=== PATIENT | female | born 1980 | race African-American/Black ===

== ENCOUNTER 2021-11-24 13:25 | Emergency (ER) | payer OTHER ==
[~2021-11-24] VITALS: Ht 160 cm; Wt 68.0 kg
[2021-11-24] MEDS ORDERED: KETOROLAC 30MG/ML VIAL IV STA (13:51)
[2021-11-24] MEDS ORDERED: ONDANSETRON HCL 4MG/2ML INJ IV STA (13:51)
[2021-11-24] MEDS ORDERED: SODIUM CHLORIDE 0.9% 1,000 ML IV ONE (14:00)
[2021-11-24 15:05] LABS: CLARITY URINE CLEAR (CLEAR); COLOR URINE YELLOW (YELLOW); KETONES URINE 1+ (NEGATIVE); LEUKOCYTE ESTERASE URINE TRACE (NEGATIVE); NITRITE URINE NEGATIVE (NEGATIVE); OCCULT BLOOD URINE 1+ (NEGATIVE); PH URINE 6.5 (4.5-8.0); PROTEIN URINE NEGATIVE (NEGATIVE); SPECIFIC GRAVITY URINE 1.022 (1.005-1.030); UROBILINOGEN URINE 0.2 E.U./dL (0.2-1.0)
[2021-11-24 15:42] LABS: BASOPHILS % 0.3 % (0.0-2.0); EOSINOPHILS % 0.1 % (0.0-5.0); HEMATOCRIT. 39.8 % (36.0-48.0); HEMOGLOBIN. 12.3 g/dL (12.0-16.0); LYMPHOCYTES % 8.8 % (20.0-50.0); MEAN CORPUSCULAR HEMOGLOBIN 20.4 pg (28.0-32.0); MEAN CORPUSCULAR VOLUME 65.7 fL (81.0-99.0); MEAN PLATELET VOLUME 8.2 fl (7.4-10.4); MONOCYTES % 2.4 % (2.0-8.0); NEUTROPHILS % 88.4 % (40.0-76.0); PLATELET 532 x1000/uL (130-400); RED BLOOD CELL COUNT 6.06 mill/uL (4.2-5.4)
[2021-11-24 15:47] LABS: CHLORIDE 114 mEq/L (98-107)
[2021-11-24 15:50] LABS: HCG SCREEN NEGATIVE
[2021-11-24] MEDS ORDERED: ONDANSETRON HCL 4MG/2ML INJ IV ONE (16:00)
[2021-11-24] MEDS ORDERED: OMEP40CA20 MT (18:38)
[2021-11-24] MEDS ORDERED: ONDA4TAB5 MT (18:38)
[2021-11-24 18:55] LABS: PLATELET ESTIMATE INCREASED
[2021-11-24 18:59] VITALS: BP 142/75
== END 2021-11-24 19:02 | disposition home or self-care (01) ==
LOC: ER 13:25
DX: R10.13 Epigastric pain (principal); R11.2 Nausea with vomiting, unspecified
CPT/HCPCS: 36415; 74176; 80053; 81003; 83690; 84703; 85025; 93005; 96361; 96374; 96375; 96376; 99291; J1885; J2405; J7030

== ENCOUNTER 2021-12-24 08:49 | Emergency (ER) | payer OTHER ==
[~2021-12-24] VITALS: Ht 162.6 cm; Wt 55.0 kg
[~2021-12-24 08:49] MED LIST: OMEP40CA20 MT; ONDA4TAB5 MT
[2021-12-24] MEDS ORDERED: ONDANSETRON HCL 4MG/2ML INJ IV STA (09:39)
[2021-12-24] MEDS ORDERED: SODIUM CHLORIDE 0.9% 1,000 ML IV ONE (09:45)
[2021-12-24 11:25] LABS: BASOPHILS % 0.4 % (0.0-2.0); EOSINOPHILS % 0.1 % (0.0-5.0); HEMATOCRIT. 42.4 % (36.0-48.0); HEMOGLOBIN. 13.4 g/dL (12.0-16.0); LYMPHOCYTES % 7.7 % (20.0-50.0); MEAN CORPUSCULAR HEMOGLOBIN 20.5 pg (28.0-32.0); MEAN CORPUSCULAR VOLUME 64.8 fL (81.0-99.0); MEAN PLATELET VOLUME 7.8 fl (7.4-10.4); MONOCYTES % 2.6 % (2.0-8.0); NEUTROPHILS % 89.2 % (40.0-76.0); PLATELET 601 x1000/uL (130-400); RED BLOOD CELL COUNT 6.55 mill/uL (4.2-5.4); RED CELL DISTRIBUTION WIDTH 16.2 % (11.6-14.6)
[2021-12-24 11:28] LABS: CHLORIDE 104 mEq/L (98-107)
[2021-12-24 12:13] LABS: PLATELET ESTIMATE INCREASED
[2021-12-24] MEDS ORDERED: MORPHINE SULFATE 4 MG/ML CPJ (NOT FOR IM USE) IV ONE (15:00)
[2021-12-24] MEDS ORDERED: ONDANSETRON HCL 4MG/2ML INJ IV ONE (15:15)
[2021-12-24] MEDS ORDERED: IOHEXOL-300 100 ML BOTTLE ONE (17:40)
[2021-12-24] MEDS ORDERED: ONDA4TAB5 MT (20:13)
[2021-12-24 20:44] LABS: CLARITY URINE CLEAR (CLEAR); COLOR URINE YELLOW (YELLOW); KETONES URINE NEGATIVE (NEGATIVE); LEUKOCYTE ESTERASE URINE NEGATIVE (NEGATIVE); NITRITE URINE NEGATIVE (NEGATIVE); OCCULT BLOOD URINE 3+ (NEGATIVE); PROTEIN URINE TRACE (NEGATIVE); SPECIFIC GRAVITY URINE 1.086 (1.005-1.030)
[2021-12-24 21:10] VITALS: BP 131/88
== END 2021-12-24 22:10 | disposition home or self-care (01) ==
LOC: ER 08:49
DX: R10.9 Unspecified abdominal pain (principal); R11.2 Nausea with vomiting, unspecified
CPT/HCPCS: 36415; 74177; 80053; 81003; 83690; 85025; 96361; 96374; 96375; 96376; 99285; J2270; J2405; J7030; Q9967

== ENCOUNTER 2024-08-21 03:58 | Emergency (ER) | payer SELFPAY ==
[~2024-08-21] VITALS: Ht 165.1 cm; Wt 80.0 kg
[2024-08-21 04:07] VITALS: O2SAT 96
[2024-08-21 05:43] LABS: BASOPHILS % 0.3 % (0.0-2.0); HEMATOCRIT. 39.9 % (36.0-48.0); HEMOGLOBIN. 12.9 g/dL (12.0-16.0); LYMPHOCYTES % 8.6 % (20.0-50.0); MEAN CORPUSCULAR HEMOGLOBIN 20.9 pg (28.0-32.0); MEAN CORPUSCULAR HGB CONC 32.5 g/dL (31.0-37.0); MEAN CORPUSCULAR VOLUME 64.3 fL (81.0-99.0); MEAN PLATELET VOLUME 8.4 fl (7.4-10.4); MONOCYTES % 4.3 % (2.0-8.0); NEUTROPHILS % 86.8 % (40.0-76.0); PLATELET 562 x1000/uL (130-400); RED CELL DISTRIBUTION WIDTH 17.1 % (11.6-14.6)
[2024-08-21 05:49] LABS: CHLORIDE 104 mEq/L (98-107); DIFFERENTIAL COMMENT 1; POTASSIUM 3.9 mEq/L (3.5-5.1); SODIUM 139 mEq/L (136-145)
[2024-08-21 05:50] LABS: ADD RBC MORPHOLOGY YES; CALCIUM 10.4 mg/dL (8.7-10.4); CARBON DIOXIDE 26 mEq/L (21-32)
[2024-08-21 05:53] LABS: INR 1.1; PROTHROMBIN TIME 11.7 sec (9.6-11.0)
[2024-08-21 05:55] LABS: CREATININE 1.1 mg/dL (0.6-1.0); GLUCOSE 171 mg/dL (70-105); UREA NITROGEN BLOOD 12 mg/dL (9-23)
[2024-08-21 05:57] VITALS: TEMP 36.66960
[2024-08-21 05:57] LABS: ALANINE AMINOTRANSFERASE 15 IU/L (10-49); ALBUMIN 5.2 g/dL (3.2-4.8); ASPARTATE AMINOTRANSFERASE 15 IU/L (<34); BILIRUBIN DIRECT 0.3 mg/dL (<=3.0); BILIRUBIN TOTAL 1.2 mg/dL (0.1-1.0); PROTEIN TOTAL 8.9 g/dL (6.0-8.3)
[2024-08-21] MEDS: ONDANSETRON HCL 4MG/2ML INJ IV STA (06:09)
[2024-08-21] MEDS: MORPHINE SULFATE 4 MG/ML INJ (FOR IV/IM USE) IV STA (06:09)
[2024-08-21] MEDS: SODIUM CHLORIDE 0.9% 1,000 ML IV ONE (06:12)
[2024-08-21 06:24] LABS: ANISOCYTOSIS 1+; MICROCYTOSIS 4+; PLATELET ESTIMATE INCREASED
[2024-08-21 06:41] VITALS: BP 136/68; PULSE 62; RESP 16; O2SAT 100
[2024-08-21 07:09] LABS: HCG SCREEN NEGATIVE
[2024-08-21] MEDS ORDERED: NAPR500T7 MT (07:15)
[2024-08-21] MEDS ORDERED: DICY-18 MT (07:15)
[2024-08-21] MEDS ORDERED: BISM262T15 MT (07:15)
[2024-08-21] MEDS ORDERED: ONDA-239 PO (07:15)
[2024-08-21] MEDS ORDERED: LOPE2CAP MT (07:15)
[2024-08-21 08:16] LABS: CLARITY URINE CLOUDY (CLEAR); COLOR URINE YELLOW (YELLOW); GLUCOSE URINE TRACE (NEGATIVE); KETONES URINE TRACE (NEGATIVE); LEUKOCYTE ESTERASE URINE TRACE (NEGATIVE); NITRITE URINE NEGATIVE (NEGATIVE); OCCULT BLOOD URINE 3+ (NEGATIVE); PROTEIN URINE 3+ (NEGATIVE); SPECIFIC GRAVITY URINE 1.024 (1.005-1.030); UROBILINOGEN URINE 0.2 E.U./dL (0.2-1.0)
[2024-08-21 08:43] LABS: MUCUS URINE 1+ /lpf (< = 2+); SQUAMOUS EPITHELIAL CELL URINE 2+ /lpf (RARE/1+)
[2024-08-21 08:47] LABS: BACTERIA URINE TRACE
[2024-08-21 08:49] LABS: TRICHOMONAS URINE FEW
== END 2024-08-21 07:55 | disposition home or self-care (01) ==
LOC: ER 03:58
DX: K52.9 Noninfective gastroenteritis and colitis, unspecified (principal); Z79.899 Other long term (current) drug therapy; Z79.1 Long term (current) use of non-steroidal anti-inflammatories (NSAID)
CPT/HCPCS: 80076; 80048; 81003; 84703; 83690; 85025; 85610; 86850; 86900; 86901; 36415; 96361; 96374; 96375; 99284; J2405; J2270; J7030; Z7610